=== PATIENT | male | born 2000 | race Caucasian/White ===

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

== ENCOUNTER 2022-02-14 02:41 | Outpatient (CLI) | payer SELFPAY | END 2022-02-14 02:42 | disposition EMS.NT | LOC: EMS 02:41 | DX: R41.82 Altered mental status, unspecified (principal) ==

== ENCOUNTER 2023-04-01 13:17 | Outpatient (CLI) | payer OTHER ==
--- NOTE | 2023-04-01 19:05 | XRAY Report ---
PROCEDURE: Chest 2 View X-Ray INDICATIONS: ASTHMA/MUSCLE SPASMS TECHNIQUE: 2 views of the chest were acquired. COMPARISON: None. FINDINGS: Surgical changes and devices: None. Lungs and pleura: No pleural effusions or pneumothorax. Lungs are clear. Mediastinum: Mediastinal contours appear normal. Heart size is normal. Bones and chest wall: No suspicious bony lesions. Overlying soft tissues appear unremarkable. IMPRESSION: No acute cardiopulmonary process. Reviewed by: Harish Cruz MD on 04/01/2023 7:03 PM PDT Approved by: Harish Cruz MD on 04/01/2023 7:03 PM PDT Station ID: [id number]
[2023-04-01 20:00] LABS: BASOPHILS % (AUTO) 0.3 %; EOSINOPHILS # (AUTO) 0.1 10^3/uL (0.0-0.7); HCT - HEMATOCRIT 45.6 % (42.0-52.0); HGB - HEMOGLOBIN 14.8 g/dL (14.0-18.0); LYMPHOCYTES # (AUTO) 1.1 10^3/uL (1.5-3.5); LYMPHOCYTES % (AUTO) 14.6 %; MEAN CORPUSCULAR HEMOGLOBIN 30.8 pg (27.0-31.0); MEAN CORPUSCULAR HGB CONC 32.5 g/dL (32.0-36.0); MEAN PLATELET VOLUME 10.7 fL (7.4-11.4); MONOCYTES # (AUTO) 0.6 10^3/uL (0.0-1.0); MONOCYTES % (AUTO) 8.3 %; NEUTROPHILS # (AUTO) 5.8 10^3/uL (1.5-6.6); NEUTROPHILS % (AUTO) 75.7 %; PLT - PLATELET COUNT 243 10^3/uL (130-450); RED CELL DISTRIBUTION WIDTH 13.9 % (12.0-15.0); WHITE BLOOD COUNT 7.7 x10^3/uL (4.8-10.8)
[2023-04-01 20:06] LABS: ALBUMIN/GLOBULIN RATIO 1.3 (1.0-2.2); BILIRUBIN,TOTAL 0.8 mg/dL (0.2-1.0); CALCIUM 8.9 mg/dL (8.5-10.3); CREATININE 0.7 mg/dL (0.6-1.2); MAGNESIUM 2.2 mg/dL (1.7-2.8); POTASSIUM 4.1 mmol/L (3.5-5.0); TOTAL PROTEIN 7.1 g/dL (6.7-8.2)
[2023-04-01 20:23] LABS: THYROID STIMULATING HORMONE 0.63 uIU/mL (0.34-5.60)
[2023-04-01 20:25] LABS: FREE T4 (FREE THYROXINE) 0.9 ng/dL (0.58-1.64)
[2023-04-01 20:26] LABS: FREE T3 3.57 pg/mL (2.5-3.9)
[2023-04-01 20:41] LABS: RHEUMATOID FACTOR NEGATIVE (Negative)
[2023-04-01 21:23] LABS: ESTIMATED AVERAGE GLUCOSE 88 mg/dL (70-100); HEMOGLOBIN A1c% 4.7 % (4.27-6.07)
[2023-04-03 09:08] LABS: VITAMIN D 25-HYDROXY 35.6 ng/mL (30.0-100.0)
[2023-04-04 05:08] LABS: HIV SCREEN 4TH GENERATION Non Reactive (Non Reactive)
[2023-04-05 03:10] LABS: RPR Non Reactive (Non Reactive)
[2023-04-05 14:08] LABS: ANTINUCLEAR ANTIBODIES IFA Negative (.)
== END 2023-04-01 13:18 | disposition home or self-care (01) ==
LOC: DI.S 13:17
PROVIDERS: ATTEND Registered Nurse
DX: J45.909 Unspecified asthma, uncomplicated (principal); R25.1 Tremor, unspecified; R20.8 Other disturbances of skin sensation; Z83.2 Family history of diseases of the blood and blood-forming organs and certain disorders involving the immune mechanism; M62.81 Muscle weakness (generalized); R20.2 Paresthesia of skin; G40.109 Localization-related (focal) (partial) symptomatic epilepsy and epileptic syndromes with simple partial seizures, not intractable, without status epilepticus; M62.838 Other muscle spasm
CPT/HCPCS: 36415; 80053; 82306; 82330; 82607; 83036; 83735; 84439; 84443; 84481; 85025; 85651; 86038; 86430; 86592; 87389

== ENCOUNTER 2023-08-03 07:51 | Outpatient (CLI) | payer OTHER ==
[2023-08-03 18:59] LABS: CHLAMYDIA TRACHOMATIS DNA NEGATIVE (NEGATIVE); NEISSERIA GONORRHOEAE DNA NEGATIVE (NEGATIVE); TRICHOMONAS VAGINALIS DNA NEGATIVE (NEGATIVE)
[2023-08-04 23:08] LABS: HBsAG SCREEN Negative (Negative); HCV AB Non Reactive (Non Reactive); HEPATITIS B CORE IGM AB Negative (Negative); HEPATITIS B SURFACE AB QUANT <3.1 mIU/mL (Immunity>9.9); HIV SCREEN 4TH GENERATION Non Reactive (Non Reactive)
[2023-08-05 05:13] LABS: RPR Non Reactive (Non Reactive)
[2023-08-05 23:08] LABS: HSV-1 DNA Negative (Negative); HSV-2 DNA Negative (Negative)
== END 2023-08-03 07:52 | disposition home or self-care (01) ==
LOC: LAB.S 07:51
PROVIDERS: ATTEND Physician Assistant
DX: Z11.3 Encounter for screening for infections with a predominantly sexual mode of transmission (principal)
CPT/HCPCS: 36415; 86317; 86592; 86705; 86803; 87340; 87389; 87491; 87529; 87591; 87661